=== PATIENT | male | born 1995 | race Caucasian/White ===

== ENCOUNTER 2016-11-16 15:28 | Emergency (ER) | payer BC, MEDICAID ==
[~2016-11-16] VITALS: Wt 65.0 kg
[~2016-11-16 15:28] MED LIST: IBUP800T25 PO
[2016-11-16] MEDS ORDERED: POLY17PO6 PO (16:17)
[2016-11-16] MEDS ORDERED: DOCU-144 PO (16:17)
--- NOTE | 2016-11-16 16:18 | ERD ---
ER Documentation Chief Complaint Date/Time DATE: 11/16/16 TIME: 16:17 Chief Complaint RECTAL BLEED ONLY WITH STOOLS. NO VOMITING. NO ABDOMINAL PAIN HPI 21-year-old otherwise healthy man presents with 2 episodes of painless rectal bleeding over the last 2 days. Patient denies vaginal discharge, no fevers or chills, no weight loss, no chest pain or shortness of breath, no melena, and no anal pruritus ROS All systems reviewed and are negative except as per history of present illness. Medications Home Meds Active Scripts Docusate Sodium* (Colace*) 100 Mg Capsule, 100 MG PO BID, #30 CAP Prov:RONDA ALBA MD 11/16/16 Polyethylene Glycol* (Miralax*) 17 Gm Powd.pack, 1 TBS PO DAILY for CONSTIPATION , #1 BOTTLE Prov:RONDA ALBA MD 11/16/16 Ibuprofen* (Motrin*) 800 Mg Tab, 800 MG PO Q6H Y for PAIN AND OR ELEVATED TEMP, #30 TAB Prov:WILLY WOODS MD 02/05/16 Ibuprofen* (Motrin*) 800 Mg Tab, 800 MG PO Q6H Y for PAIN AND OR ELEVATED TEMP, #30 TAB Prov:EVIN GARDUNO NP 07/12/15 Allergies Allergies: Coded Allergies: No Known Allergy (Unverified , 07/12/15) PMhx/Soc None History of Surgery: No Anesthesia Reaction: No Hx Neurological Disorder: No Hx Respiratory Disorders: No Hx Cardiac Disorders: No Hx Psychiatric Problems: No Hx Miscellaneous Medical Probl: No Hx Alcohol Use: No Hx Substance Use: No Hx Tobacco Use: No FmHx Family History: No diabetes Physical Exam Vitals Vital Signs Date Time Temp Pulse Resp B/P Pulse Ox O2 Delivery O2 Flow Rate FiO2 11/16/16 15:44 98.1 74 20 130/68 98 Physical Exam GENERAL: Well-developed, well-nourished, well-hydrated, in no apparent distress , looks nontoxic in appearance HEENT: Moist mucous membranes, pink conjunctiva, no cervical spine tenderness or step-off deformities, no goiter, no jaundice or icterus, extraocular movements intact without pain. No submandibular induration, and no pharyngeal erythema NEURO: Alert and oriented 3, cranial nerves II through XII intact bilaterally, pupils equal round reactive to light, no focal deficits or facial asymmetry, sensation intact distally Strength 5/5 in upper and lower extremities bilaterally CARDIAC: Regular rate and rhythm, no murmurs rubs or gallops LUNGS: Clear bilaterally no wheezing crackles or stridor ABDOMEN: Soft nontender, no guarding, no rigidity, no rebound, no psoas sign no obturator sign. Normoactive bowel sounds SKIN: Warm and dry to touch, no abrasions, contusions, or hematomas, no lacerations, no ecchymosis, no target lesions, and without ulcers EXTREMITIES: No clubbing cyanosis or edema, calves are bilaterally symmetrical, no Homans sign, no popliteal cord sign. Distal pulses equal and bilateral PSYCH: Normal affect without agitation or irritability Procedures/MDM This painless rectal bleeding may be secondary to a viral infection, but most likely secondary to internal hemorrhoids. I have no indication at this time for any further intervention, imaging, or admission. I educated the parent and his mother who is at the bedside regarding a high-fiber diet and importance of follow-up with his primary care physician. If bleeding continues he may require anoscopy versus colonoscopy. Differential diagnoses considered, included but not limited to acute coronary syndrome, pulmonary embolism, aortic dissection, abdominal aortic aneurysm, sepsis, stroke, meningitis, encephalitis, pneumonia, appendicitis, cholecystitis , bowel obstruction, pyelonephritis, nephrolithiasis, cystitis, as well as metabolic, hematologic, and electrolyte abnormalities. As well as abscess, cellulitis, fractures, and dislocations. Patient feels much better at this time, and vital signs are normal, symptoms have improved. I did give strict instructions to return to the ED if symptoms continue or worsen, patient will otherwise follow-up with primary care physician. Patient understood instructions and agreed to plan. Departure Diagnosis: Primary Impression: Occult blood in stools Additional Impressions: Rectal bleeding Internal hemorrhoid, bleeding Condition: Good Patient Instructions: Understanding Hemorrhoids, Rectal Bleed, Stable RONDA ALBA MD Nov 16, 2016 16:18
== END 2016-11-16 16:50 | disposition home or self-care (01) ==
LOC: FTE 15:28
DX: R19.5 Other fecal abnormalities (principal); K64.8 Other hemorrhoids
CPT/HCPCS: 99283